=== PATIENT | male | born 1955 | race Caucasian/White ===

== ENCOUNTER 2025-05-05 13:42 | Outpatient (CLI) | payer MEDICARE, SELFPAY ==
--- OUTSIDE RECORDS SUMMARY | 2025-05-05 13:58 | XMS_ITS | CCD ---
Author Name Interface, [address] Address [address] Address [address] [place] [address] Care Team Providers Care Manager Sterile Name Role Phone Jad ZAVALA, Pau Gee Unavailable Unavailable Reason for Visit Social History
--- OUTSIDE RECORDS SUMMARY | 2025-05-05 13:58 | XMS_ITS ---
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 Lobular carcinoma of right breast 06/10/2022 Cancer Staging:Clinical stage from 06/10/2022:Stage IA(cT1c, cN0, cM0, G2, ER+, HI+, HER2: Equivocal) - Signed by Yary Denny MD on 06/10/2022 Pathologic stage from 07/31/2022:Stage IA(pT1c, pN0, cM0, G2, ER+, HI+, HER2-) - Signed by Yary Denny MD on 07/31/2022 Current Treatment and Therapy Plans Retail: Somatuline *[facility] Preferred* - Neuroendocrine* Plan Start Date:03/16/2024 Plan Provider:Rhianna Rutledge MD Linked Problems Neuroendocrine cancer Treatment Medications Current Day (Day 1 , Cycle 16 - Planned for 05/16/2025) Next Day (Day 1, Cycle 17 - Planned for 06/13/2025) No medications scheduled. No medications schedul ed. No medications scheduled. Retail: SUPPORT - Jub[employer] (DENOSUMAB)* Plan Start Date:04/18/2025 Plan Provider:Rhianna Rutledge MD Linked Problems Osteopenia, unspecified loca tionLobular carcinoma of right breast Treatment Medications Current Day (Day 1 , Cycle 2 - Planned for 10/17/2025) Next Day (Day 1, Cycle 3 - Planned for 04/17/2026) No medications scheduled. No medications schedul ed. No medications scheduled. Past Treatment and Therapy Plans ONCOLOGY SUPPORTIVE CARE Plan Name Start Date Discontinue Date Treatment Medications Discontinue Reason Plan Provider Cycles SUPPORT - ZOMETA - [facility] 07/18/2024 03/29/2025 No medications scheduled. Therapy Complete Rhianna Rutledge MD 4 of 6 cycles started [facility]: SUPPORT - PROLIA (DENOSUMAB) 05/14/2023 07/11/2024 No medications scheduled. Plan Clean Up Rhianna Rutledge MD 1 of 6 cycles started Current Radiation Episodes * IMRT: Right BreastOverview* First Treatment Date Latest Treatment Date Treatment Site Technique Goal Episode Provider 09/01/2022 09/19/2022 Right Breast IMRT Curative June barriga, Marc Biswas MD * Linked Problems Treatment Courses* Course C1 09/01/2022 - 09/19/2022 Treatment Period Fraction Dose Fractions Total Dose Plans Planned [id number] 09/01/2022 - 09/19/2022 267 cGy 4,005 cGy Reference Points Delivered [id number] 09/01/2022 - 09/19/2022 4,005 cGy
--- OUTSIDE RECORDS SUMMARY | 2025-05-05 13:58 | XMS_ITS | Clinical Summary ---
Author Organization [facility] Address [address] [place] [address] Care Team Providers Care Sales Strategy Manager Name Role Phone Rhianna Rutledge MD Unavailable Adan Hassan MD Primary Care Provider [phone] Allergies No known active allergies Medications albuterol 108 (90 Base) MCG/ACT Aerosol Solution take 2 Puffs by inhalation. Active fluticasone (FLONASE) 50 MCG/ACT Suspension 1-2 Sprays by Nasal route daily as needed. Use in each nostril as directed. Active anastrozole (ARIMIDEX) 1 MG TabletIndicati ons:Infiltrati ng lobular carcinoma of breast, stage 1, right TAKE 1 TABLET BY MOUTH EVERY DAY 90 Tablet 4 Active Somatuline Depot 120 MG/0.5ML Solution prefilled syringe 0.5 mL by Subcutaneous route every 28 days. 0.5 mL 11 5 Active Denosumab-bbdz (JUBBONTI) 60 MG/ML Solution Prefilled Syringe 1 mL by Subcutaneous route every 180 days. 1 mL 1 5 Active benzonatate (TESSALON) 200 MG Capsule TAKE 1 CAPSULE BY MOUTH THREE TIMES A DAY NEEDED FOR 5 DAYS 5 Active loratadine (CLARITIN) 10 MG Tablet take 1 tablet by mouth every day as needed 5 Active buPROPion (WELLBUTRIN) 150 MG XL tablet every morning. 2 025 Discontin ued(Med List Clean Up) Active Problems Problem Noted Date Diagnosed Date Elevated blood pressure reading 07/12/2024 Neuroendocrine cancer 03/09/2024 Encounter for screening mamm ogram for malignant neoplasm of breast 04/16/2023 Osteopenia 04/16/2023 Infiltrating lobular carcinoma of breast, stage 1, right 08/18/2022 Lobular carcinoma of right breast 06/10/2022 Cancer Staging:Clinical stage from 06/10/2022:Stage IA(cT1c, cN0, cM0, G2, ER+, WA+, HER2: Equivocal) - Signed by Yary Denny MD on 06/10/2022 Pathologic stage from 07/31/2022:Stage IA(pT1c, pN0, cM0, G2, ER+, WA+, HER2-) - Signed by Yary Denny MD on 07/31/2022 Encounters Date Type Department Care Team Description 04/18/2025 11:00 AM CDT Clinical Support [facility] [address] [id number] Nurse, [facility] [place] Osteopenia, unspecified location (Primary Dx); Lobular carcinoma of right breast; Neuroendocrine cancer 04/18/2025 10:45 AM CDT Office Visit [facility] [address] [phone] Rhianna Rutledge MD 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); Infiltrating lobular carcinoma of breast, stage 1, right; Elevated LFTs; Osteopenia, unspecified location 04/18/2025 10:30 AM CDT Lab [facility] [address] [address] Lab, [facility] [place] Neuroendocrine cancer 04/18/2025 Travel 04/06/2025 1:00 PM CDT Office Visit [facility] [address] [phone] Rhianna Rutledge MD 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); Elevated LFTs; Infiltrating lobular carcinoma of breast, stage 1, right 04/06/2025 12:45 PM CDT Lab [facility] [address] [address] Lab, [facility] [place] Neuroendocrine cancer; Diffuse idiopathic pulmonary neuroendocrine cell hyperplasia; Infiltrating lobular carcinoma of breast, stage 1, right; Osteopenia, unspecified location 04/06/2025 Travel 04/04/2025 8:00 AM CDT Care Management [facility] [address] [phone] Navigator, [facility] Nurse Care Management (EDUCATION PREP) 03/24/2025 Telephone [facility] [address] [phone] Rhianna Rutledge MD 03/14/2025 Telephone [facility] [address] [phone] Rhianna Rutledge MD 03/09/2025 1:45 PM CDT Office Visit [facility] [address] [phone] Rhianna Rutledge MD Neuroendocrine cancer (HCC) (Primary Dx); Diffuse idiopathic pulmonary neuroendocrine cell hyperplasia; Infiltrating lobular carcinoma of breast, stage 1, right; Osteopenia, unspecified location 03/09/2025 1:00 PM CDT Ancillary Procedure [facility] [address] [phone] Neuroendocrine cancer (HCC); Infiltrating lobular carcinoma of breast, stage 1, right; Dyspnea on exertion; Lung nodules 03/09/2025 12:45 PM CDT Lab [facility] [address] [phone] Lab, [facility] Neuroendocrine cancer (HCC) 03/09/2025 Travel 03/09/2025 Refill [facility] [address] [place] [address] Rhianna Rutledge MD 03/07/2025 Refill [facility] [address], [address] [place] [address] Rhianna Rutledge MD 03/02/2025 Refill [facility] [address], [address] [place] [address] Rhianna Rutledge MD 02/09/2025 11:45 AM CDT Office Visit [facility] [address] [phone] Carri Cox APRN, CNP Neuroendocrine cancer (HCC) (Primary Dx); Infiltrating lobular carcinoma of breast, stage 1, right; Dyspnea on exertion; Lung nodules; Diffuse idiopathic pulmonary neuroendocrine cell hyperplasia; Osteopenia, unspecified location; Lobular carcinoma of right breast 02/09/2025 11:30 AM CDT Lab [facility] [address] [phone] [facility] Infiltrating lobular carcinoma of breast, stage 1, right; Diffuse idiopathic pulmonary neuroendocrine cell hyperplasia; Osteopenia, unspecified location; Neuroendocrine cancer (HCC) 02/09/2025 Travel from Last 3 Months Family History Medical History Relation Name Comments Lung Cancer Brother Lung Cancer Maternal Aunt Ovarian Cancer Paternal Grandmother Breast Cancer Sister Leukemia/Lymphoma Sister Relation Name Status Comments Brother Maternal Aunt Alive Paternal Grandmother Sister Social History Tobacco Use Types Packs/Day Years Used Date Smoking Tobacco: Former Cigarettes 1 1 Smokeless Tobacco: Never Tobacco Cessation:Counseling Given: Not Answered Comments:Smoked heavily for 1 year, otherwise only socially. Quit for 11 years then smoked 05/2021-04/2022 Alcohol Use Standard Drinks/Week Comments Yes 0 (1 standard drink = 0.6 oz pur e alcohol) rarely Comments No Sex and Gender Information Value Date Recorded Sex Assigned at Not on file Legal Sex Female 8:35 AM CDT Gender Identity Not on file Sexual Orientation Not on file Occupation Industry Job Start Date Job End Date retired [employer] Not on file Not on file Not on file Last Filed Vital Signs Vital Sign Reading Time Taken Comments Blood Pressure 130/88 04/18/2025 10:28 AM CDT Pulse 74 04/18/2025 10:28 AM CDT Temperature 36.4 C (97.6 F) 04/18/2025 10:28 AM CDT Respiratory Rate 18 04/18/2025 10:2 8 AM CDT Oxygen Saturation 97% 04/18/2025 10: 28 AM CDT Inhaled Oxygen Concentration - - Weight 91.5 kg (201 lb 12.8 oz) 025 10:28 AM CDT Height 163.8 cm (5' 4.5) 04/18/2025 10 :28 AM CDT Body Mass Index 34.1 04/18/2025 10:28 AM CDT Plan of Treatment Upcoming Encounters Date Type Department Care Team (Late st Contact Info) Description 05/16/2025 10:35 AM [facility] Lab [facility] [address] [phone] Lab, [facility] 05/16/2025 10:45 AM [facility]OL [facility]ER Office Visit [facility] [address] [phone] Rhianna Rutledge MD [address] [place] [phone] 05/16/2025 11:00 AM WOOL [facility]ANKER Clinical Support [facility] [address] [phone] Health Maintenance Due Date Last Done Comments Hepatitis C Virus (HCV) Screening 1955 Immunochemical Fecal Occult Blood 1999 Medicare Initial AWV [id number] 01/03/2022 Cologuard 10/15/2022 10/16/2019 Zoster Immunization (2 of 2) 10/15/2022 08/20/2022 Influenza Immunization (#1) 03/06/202504/05, 04/21/2023, 06/20/2022, Additional history exists SARS-COV-2 Immunization ( season) 2025 04/22/2024, 04/21/2023, 06/20/2022, Additional history exists Mammogram 08/19/2025 08/19/2024, 05/06, 05/20/2023, Additional history exists DEXA Bone Density 08/31/2026 08/31/2024, 09/02/2022 Colonoscopy 12/23/2033 12/24/2023, 12/24/2023 Colorectal Cancer Screening 12/23/2033 DTaP/Tdap/Td Immunization Discontinued 09/21/2019, 08/1999 TdaP Immunization Completed 09/21/2019 Pneumococcal Immunization (50+ years) Completed 04/19/2021, 09/21/2019 Respiratory Syncytial Virus (RSV) Immunization (Adult) Completed 04/22/2024 Mammogram Unilateral Discontinued 08/19/2024, 05/20/2023, 05/20/2023, Additional history exists Hepatitis B Immunization Aged Out No longer eligible based on patient's age to complete this topic Human Papillomavirus (HPV) Immunization Aged Out No longer eligible based on patient's age to complete this topic Meningococcal Immunization (ACWY) Aged Out No longer eligible based on patient's age to complete this topic Rotavirus Immunization Aged Out No lo nger eligible based on patient's age to complete this topic Goals Goal Patient Goal Type Associated Problems Recent Progress Patient-Stated? Author Patient will have better understanding of her cancer diagnosis Care Coordination On track(08/11 8:56 AM WOOL HANKER) Yaz Gray, RN Note: Goal Reviewed with: patient Readiness to change: Ready to change Department associated with goal: [facility] Steps to achieve goal: Patient will learn the pathophysiology of her cancer diagnosis, including the implications of hormone receptors Patient will learn about typical treatment options for breast cancer 3. Patient will learn the different members of her care team [employer] Targets Zoe Zamorano, RN Note: Have an understanding of radiation therapy. Patient does not have any personal goals. 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, stage 1, right Osteopenia, unspecified location CT CHEST W CONTRAST Routine 03/09/2025 1 2:56 PM CDT Neuroendocrine cancer (HCC) Infiltrating lobular carcinoma of breast, stage 1, right Dyspnea on exertion Lung nodules CBC WITH AUTO DIFF OH Routine 03/09/2025 12:29 PM CDT CMP (COMPREHENSIVE METABOLIC PANEL) Routine 03/09/2025 12:29 PM CDT Neuroendocrine cancer (HCC) CBC WITH AUTO DIFF OH Routine 02/09/2025 11:31 AM CDT CMP (COMPREHENSIVE METABOLIC PANEL) Routine 02/09/2025 11:31 AM CDT Infiltrating lobular carcinoma of breast, stage 1, 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 Osteopenia, unspecified location Neuroendocrine cancer (HCC) [facility] BONE DENSITOMETRY AXIAL SKELETON Routine 08/31/2024 1:44 PM WOOL [facility]ER Neuroendocrine cancer (HCC) Encounter for screening mammogram for malignant neoplasm of breast EDWIN DIAG BILATERAL DIGITAL W CAD W LITTLE Routine 05/20/2023 Invasive lobular carcinoma of breast in female (HCC) Lobular carcinoma of right breast (HCC) Personal history of breast cancer from Last 3 Months or Most Recently Relevant to Health Maintenance Results * (ABNORMAL) CBC WITH AUTO DIFF OH (04/18/2025 10:13 AM CDT) Only the most recent of4 resultswithin the time period is included. WBC 7.4 4.0 - 10.0 10*3/uL [facility] HGB 14.9 11.2 - 15.7 g/dL [facility] [employer] HCT 45.8(H) 34.1 - 44.9 % [facility] PLT 303 163 - 369 10*3/uL [facility] MPV 9.4 9.4 - 12.4 fL [facility] RBC 4.84 3.93 - 5.22 10*6/uL [facility] MCV 95 79 - 95 fL [facility] TRA[facility] MCH 30.8 25.6 - 32.2 pg [facility] MCHC 32.5 32.2 - 36.5 g/dL [facility] RDW 12.7 11.6 - 14.4 % [facility] Neutrophils % 53.1 36.0 - 66.0 % [facility] Lymphocytes % 32.7 19.0 - 40.0 % [facility] Monocytes % 10.3 4.1 - 12.1 % [facility]LL[facility] TRA[facility] Eosinophils % 2.7 0.0 - 3.5 % [facility] Basophils % 1.1(H) 0.0 - 1.0 % [facility] Absolute Neutrophils 3.9 1.4 - 6.6 10*3/uL [facility] Absolute Lymphocytes 2.4 0.8 - 4.0 10*3/uL [facility] Absolute Monocytes 0.8 0.2 - 1.2 10*3/uL [facility] Absolute Eosinophils 0.2 0.0 - 0.4 10*3/uL [facility] Absolute Basophils 0.1 0.0 - 0.1 10*3/uL [facility] 04/18/2025 10:1 3 AM CDT Rhianna Rutledge MD LAB SEND OUTS Final Result [facility] [place] [address], * (ABNORMAL) CMP (COMPREHENSIVE METABOLIC PANEL) (04/18/2025 10:13 AM CDT) Only the most recent of4 resultswithin the time period is included. Glucose 139(H) 70 - 105 mg/dL [facility] Blood Urea Nitrogen 13 7 - 25 mg/dL [facility] Creatinine 0.6 0.6 - 1.2 mg/dL [facility] Sodium 140 136 - 145 mEq/L [facility] Potassium 4.4 3.5 - 5.1 mEq/L [facility] Chloride 104 98 - 107 mEq/L [facility] Bicarbonate 29 21 - 31 mEq/L [facility] Total Bilirubin 0.4 0.3 - 1.0 mg/dL [facility] Alk. Phosphatase 71 34 - 104 U/L [facility] Aspartate Aminotransferase 85(H) 13 - 39 U/L [facility] Alanine Aminotransferase 176(H) 7 - 52 U/L [facility] Total Protein 7.4 6.4 - 8.9 g/dL [facility] Albumin 4.2 3.5 - 5.7 g/dL [facility] Calcium 9.2 8.6 - 10.3 mg/dL [facility] Anion Gap 11.4 7.0 - 15.0 mEq/L [facility] Globulin 3.2 2.0 - 3.5 g/dL [facility] EGFR 96 >60 ml/min/1. 73m2 [facility] Comment: This eGFR is calculated using 2020 CKD-EPI Creatinine equation without race modifier based on the NKF-ASN task force recommendations Equation: cJJV=361*min(SCr/k,1)a*max(SCr/k,1)-1.200*0.9938Age*1.012 (if female), where SCr is serum creatinine, k is 0.7 for females and 0.9 for males, and a is -0.241 for females and -0.302 for males Blood 04/18/2025 10:1 3 AM CDT Narrative [facility] - 04/18/2025 10:54 AM CDT Release to patient->Immediate IS THE PATIENT REQUIRED TO BE FASTING FOR 8 HOURS?->No us Rhianna Rutledge MD CHEMISTRY ORDERABLES Final Resul t [facility] [employer] [place] [address], * CT CHEST W CONTRAST (03/09/2025 12:56 PM CDT) Anatomical Region Laterality Modality Chest N/A Computed Tomogra phy Narrative 03/09/2025 1:26 PM CDT EXAMINATION: CT CHEST W CONTRAST 03/09/2025 INDICATIONS: Other malignant neuroendocrine tumors neuroendocrine malignancy. Pulmonary nodules. COMPARISON: CT chest 02/02/[address]-PET of 2024 TECHNIQUE: Following the administration of intravenous contrast, helical imaging was performed through the chest. A dose lowering technique was used for this procedure, which may include, but is not limited to, dose reduction technique(s), automated exposure control techniques, use of iterative reconstruction techniques, and ALARA (as low as reasonably achievable) or ALARA/IMAGE Gently techniques. FINDINGS: Cardiovascular: Atherosclerotic disease is seen within the thoracic aorta without aneurysmal dilatation. Moderate coronary artery calcification is seen. The heart size is within normal limits. The pulmonary arterial tree demonstrates no definite filling defect to suggest acute pulmonary embolism. Pleura: No significant pleural or pericardial effusion is seen. Lymphatics: Calcified lymph nodes are present consistent with previous granulomatous disease. No other significant adenopathy is appreciated. Postop changes are seen within the right axilla. Lungs: Multiple small pulmonary nodules are redemonstrated bilaterally and are probably not significantly changed. The largest of these is seen within the lingula. Additional atelectasis and interstitial abnormalities are present. There is mild mosaic pattern present. Upper abdomen: Hepatic steatosis is present. Fatty sparing is seen adjacent to the gallbladder. Musculoskeletal: Degenerative changes are seen within the spine. There is postprocedural changes of the right breast with fluid collection redemonstrated similar to previous. IMPRESSION 1. Postop changes of the right breast with persistent fluid collection probably not significantly changed presumed postprocedural. Recommend correlation with previous workup and follow up. 2. Postop changes right axilla stable in their appearance. No recurrent adenopathy. 3. Multiple small pulmonary nodules redemonstrated and not significantly changed. These remain indeterminate in their etiology. Metastatic disease remains a possibility. Continued follow-up recommended. 4. Additional atelectatic changes and chronic parenchymal changes are seen. Mild mosaic pattern is present. 5. Hepatic steatosis. Electronically signed by: KP WEAVER MD, Staff Radiologist Date of Signature: 03/09/2025 13:26:01 Procedure Note Kp Weaver MD - 03/09/2025 EXAMINATION: CT CHEST W CONTRAST 03/09/2025 INDICATIONS: Other malignant neuroendocrine tumors neuroendocrine malignancy.Pulmonary nodules. COMPARISON: CT chest 02/02/[address]-PET of 2024 TECHNIQUE: Following the administration of intravenous contrast, helical imaging wasperformed through the chest. A dose lowering technique was used for this procedure, which may include,but is not limited to, dose reduction technique(s), automated exposurecontrol techniques, use of iterative reconstruction techniques, and ALARA(as low as reasonably achievable) or ALARA/IMAGE Gently techniques. FINDINGS: Cardiovascular: Atherosclerotic disease is seen within the thoracic aortawithout aneurysmal dilatation. Moderate coronary artery calcification isseen. The heart size is within normal limits. The pulmonary arterialtree demonstrates no definite filling defect to suggest acute pulmonaryembolism. Pleura: No significant pleural or pericardial effusion is seen. Lymphatics: Calcified lymph nodes are present consistent with previousgranulomatous disease. No other significant adenopathy is appreciated.Postop changes are seen within the right axilla. Lungs: Multiple small pulmonary nodules are redemonstrated bilaterally andare probably not significantly changed. The largest of these is seenwithin the lingula. Additional atelectasis and interstitial abnormalitiesare present. There is mild mosaic pattern present. Upper abdomen: Hepatic steatosis is present. Fatty sparing is seenadjacent to the gallbladder. Musculoskeletal: Degenerative changes are seen within the spine. There ispostprocedural changes of the right breast with fluid collectionredemonstrated similar to previous. IMPRESSION 1. Postop changes of the right breast with persistent fluid collectionprobably not significantly changed presumed postprocedural. Recommendcorrelation with previous workup and follow up. 2. Postop changes right axilla stable in their appearance. No recurrentadenopathy. 3. Multiple small pulmonary nodules redemonstrated and not significantlychanged. These remain indeterminate in their etiology. Metastaticdisease remains a possibility. Continued follow-up recommended. 4. Additional atelectatic changes and chronic parenchymal changes areseen. Mild mosaic pattern is present. 5. Hepatic steatosis. Electronically signed by: KP WEAVER MD, Staff Radiologist Date of Signature: 03/09/2025 13:26:01 us Carri Phamattreinaldo PIERCING SPECIALIST, BEACH EXPERT IMG CT ORDERABLES F inal Result * [facility] BONE DENSITOMETRY AXIAL SKELETON (08/31/2024 1:44 PM WOOL HANKER) Anatomical Region Laterality Modality BODY N/A Other Narrative 08/31/2024 3:09 PM WOOL HANKER EXAMINATION: [facility] BONE DENSITOMETRY AXIAL SKELETON INDICATIONS: Other malignant neuroendocrine tumors. Osteoporosis, 1 inch height loss, hysterectomy, postmenopausal, anastrozole use, calcium supplement use, bone loss drug use COMPARISON: Note is made that an outside report from [facility] dated September 02, 2022 has been forwarded to our department. FINDINGS: Normal appearing bone density of the L1-L4 of the lumbar spine measuring 1.088 corresponding to 91 percent of that expected in a young adult with A T-score of -0.9 and a Z-score of 0.1. This appears to have worsened from report of outside examination dated September 02, 2022. Low bone mass (osteopenia) of the left femoral neck measuring 0.710 corresponding to 68 percent of that expected in a young adult with a T-score of -2.4 and a Z- score of -1.1. Low bone mass (osteopenia) of the total left femoral bone mineral density value measuring 0.783 corresponding to 78 percent of that expected in a young adult with a T-score of -1.8 and a Z-score of -0.8. Low bone mass (osteopenia) of the right femoral neck measuring 0.708 corresponding to 68 percent of that expected in a young adult with a T-score of -2.4 and a Z- score of -1.1. Low bone mass (osteopenia) of the total right femoral bone mineral density value measuring 0.807 corresponding to 80 percent of that expected in a young adult with a T-score of -1.6 and a Z-score of -0.6. Low bone mass (osteopenia) of the total mean femoral bone mineral density value measuring 0.795 corresponding to 79 percent of that expected in a young adult with a T-score of -1.7 and a Z-score of -0.7. IMPRESSION Low bone mass (osteopenia). The bone mineral density of the left femoral has worsened when compared to report of outside examination dated September 02, 2022. The bone mineral density of the right femoral neck has worsened when compared to report of outside examination dated September 02, 2022. Electronically signed by: ALEXANDRIA MAGANA MD Date of Signature: 08/31/2024 15:09:44 Procedure Note Alexandria Magana MD - 08/31/2024 EXAMINATION: [facility] BONE DENSITOMETRY AXIAL SKELETON INDICATIONS: Other malignant neuroendocrine tumors. Osteoporosis, 1 inch height loss,hysterectomy, postmenopausal, anastrozole use, calcium supplement use,bone loss drug use COMPARISON: Note is made that an outside report from [facility] dated 2022 has been forwarded to our department. FINDINGS: Normal appearing bone density of the L1-L4 of the lumbar spine measuring1.088 corresponding to 91 percent of that expected in a young adult with AT-score of - 0.9 and a Z-score of 0.1. This appears to have worsened fromreport of outside examination dated September 02, 2022. Low bone mass (osteopenia) of the left femoral neck measuring 0.710corresponding to 68 percent of that expected in a young adult with aT-score of -2.4 and a Z-score of -1.1. Low bone mass (osteopenia) of the total left femoral bone mineral densityvalue measuring 0.783 corresponding to 78 percent of that expected in ayoung adult with a T-score of -1.8 and a Z-score of -0.8. Low bone mass (osteopenia) of the right femoral neck measuring 0.708corresponding to 68 percent of that expected in a young adult with aT-score of -2.4 and a Z-score of -1.1. Low bone mass (osteopenia) of the total right femoral bone mineral densityvalue measuring 0.807 corresponding to 80 percent of that expected in ayoung adult with a T-score of -1.6 and a Z-score of -0.6. Low bone mass (osteopenia) of the total mean femoral bone mineral densityvalue measuring 0.795 corresponding to 79 percent of that expected in ayoung adult with a T-score of -1.7 and a Z-score of -0.7. IMPRESSION Low bone mass (osteopenia). The bone mineral density of the left femoral has worsened when compared toreport of outside examination dated September 02, 2022. The bone mineral density of the right femoral neck has worsened whencompared to report of outside examination dated September 02, 2022. Electronically signed by: ALEXANDRIA MAGANA MD Date of Signature: 08/31/2024 15:09:44 Rhianna Rutledge MD IMG DEXA ORDERABLES Final Result * EDWIN DIAG BILATERAL DIGITAL W CAD W LITTLE (05/20/2023) Anatomical Region Laterality Modality breast Bilateral Mammography Rhianna WEBERG MAMMO ORDERABLES Final Resul t from Last 3 Months or Most Recently Relevant to Health Maintenance Insurance MEDICARE C [facility] MEDICARE C [facility] Care Teams Sales Strategy Manager Relationship Specialty Start Date End Date Adan Hassan MD [address] [place] [id number] PCP - General Internal Medicine 05/20/24 Rhianna Rutledge MD [address] [place] [phone] Consulting Physician Oncology 11/23/23
--- OUTSIDE RECORDS SUMMARY | 2025-05-05 13:58 | XMS_ITS | CCD ---
Author Name Interface, [address] [id number] Care Team Providers Care Network Systems Consultant Name Role Phone Jad ZAVALA, Pau Gee Unavailable Unavailable Reason for Visit Social History Date Name Value 10/15/2024 Sex Female
--- OUTSIDE RECORDS SUMMARY | 2025-05-05 13:58 | XMS_ITS | Clinical Summary ---
Author Organization [facility] Address [address] [place] [phone] Care Team Providers Care Outboard Motor Assembler Name Role Phone Adan Hassan MD Primary Care Provider [phone] Surgical History Surgery Date Site/Laterality Comments BREAST LUMPECTOMY 07/18/2022 Right Medical History Medical History Date Comments Breast cancer (HCC) 07/18/2022 right breast cancer History of radiation therapy rig ht breast cancer - Aug thru September 2022 - treatments Family History Medical History Relation Name Comments Breast cancer Sister Relation Name Status Comments Sister Social History Tobacco Use Types Packs/Day Years Used Date Smoking Tobacco: Never Assessed Comments No Sex and Gender Information Value Date Recorded Sex Assigned at Not on file Legal Sex Female 11:34 AM CHECK CLERK Gender Identity Not on file Sexual Orientation Not on file Obstetrics History Para Term AB IAB SAB Ectopic Multiple Livin g Live Births 1 1 1 Date Outcome GA Total Labor Labor/2nd/3rd Weight Sex Type Anes PTL Jaelyn A1 A5 Name Clin Term Last Filed Vital Signs Vital Sign Reading Time Taken Comments Blood Pressure 151/70 04/16/2020 5:50 AM CDT Pulse 58 04/16/2020 5:50 AM CDT Temperature 35.9 C (96.6 F) 04/16/2020 5:50 AM CDT Respiratory Rate - - Oxygen Saturation 98% 04/16/2020 5:50 AM CDT Inhaled Oxygen Concentration - - Weight 74.8 kg (164 lb 14.5 oz) 04/16/2020 5:50 AM CDT Height 165.1 cm (5' 5) 04/16/2020 5:50 AM CDT Body Mass Index 27.44 04/16/2020 5:50 AM CDT Plan of Treatment Health Maintenance Due Date Last Done Comments Colon Cancer Screening-Colonoscopy 1954 Depression Screening 1954 Fall Risk Assessment 1955 Hepatitis C Screening 1955 Hepatitis B Screening 1972 Well Visit 65+ 2019 Zoster Vaccine (2 of 2) 10/15/2022 08/20/2022 Osteoporosis Screening-Bone Density Scan 09/02/2024 09/02/2022, 09/02/2022 Covid-19 Vaccine (5 - 2024-2 6 season) 2025 04/21/2023, 06/20/2022, 11/28/2020, Additional history exists Influenza Vaccine (#1) 2025 , 06/20/2022, 04/19/2021, Additional history exists Breast Cancer Screening-Mammogram 08/19/2025 08/19/2024, 05/20/2023, 05/20/2023, Additional history exists DTaP/Tdap/Td Vaccine (2 - Td or Tdap) 09/20/2029 09/21/2019, 11/05/1999 Pneumococcal vaccine 65+ Completed 04/19/2021, 09/03 Procedures Procedure Name Priority Date/Time Associated Diagnosis Comments DIAGNOSTIC MAMMOGRAM BILATERAL W JAKE Schedule Routine, Read Routine (OP Routine) 08/19/2024 8:40 AM CHECK CLERK Personal history of breast cancer from Last 3 Months or Most Recently Relevant to Health Maintenance Results * Diagnostic Mammogram Bilateral W Jake (08/19/2024 8:40 AM CHECK CLERK) Anatomical Region Laterality Modality Breast Bilateral Mammography 08/19/2024 8:56 AM CHECK CLERK Narrative 08/19/2024 9:04 AM CHECK CLERK EXAM DESCRIPTION: DIAGNOSTIC MAMMOGRAM BILATERAL W JAKE REASON FOR STUDY: 69-year-old female with reported history of invasive lobular carcinoma status post breast conservation therapy at an outside facility in July 2022. She presents today for routine annual post-treatment follow-up. TECHNIQUE: CC and MLO views of the bilateral breasts were obtained with digital technique using breast tomosynthesis with C view. COMPARISON: 05/20/2023, 01/28/2023, 07/18/2022, 06/10/2022, 05/28/2022, 05/16/2022, 11/08/2021, 05/21/2021, 03/14/2021 FINDINGS: DENSITY: There are scattered areas of fibroglandular density. MAMMOGRAM FINDINGS: Changes of right breast conservation therapy are again noted. There is a large mass measuring at least 7.9 cm in the posterior central right breast. This mass contains areas of internal fat density, consistent with postoperative seroma. Size and appearance of this seroma are largely similar to prior mammogram from May 2023. There also are stable postoperative changes in the right axilla, consistent with prior sentinel lymph node biopsy/excision (axillary lymph nodes were negative per the patient). Benign secretory calcifications and other typically benign calcifications in both breasts have not suspiciously changed. No definite new suspicious finding is seen within either breast on mammogram. IMPRESSION: 1. Stable mammographic findings consistent with right breast conservation therapy as detailed above. 2. No new suspicious mammographic finding within either breast. Continued clinical follow-up, monthly breast self-examination, and screening mammography in 1 year are recommended. BIRADS: 2 Benign findings. The patient was notified of these findings and recommendations at the time of the examination. THIS IS AN ELECTRONICALLY VERIFIED FINAL REPORT 08/19/2024 9:04 AM - Electronically signed by Vimal Mathew M.D., MD: Report ID: [id number] Reading Location: [facility] Rhianna Rutledge MD IMG MAMMO PROCEDURES Final Resul t from Last 3 Months or Most Recently Relevant to Health Maintenance Insurance [employer] MEDICARE GOLD [facility] Care Teams Outboard Motor Assembler Relationship Specialty Start Date End Date Adan Hassan MD [address] [place] [address] [place] [address] PCP - General Internal Medicine 05/24/24
--- OUTSIDE RECORDS SUMMARY | 2025-05-05 13:58 | XMS_ITS ---
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 Abnormal finding on lung imaging 02/15/2024 Multiple lung nodules 02/15/2024 Malignant neoplasm of upper- outer quadrant of right breast in female, estrogen receptor positive 02/15/[address] disease without complication 02/15/2024 Environmental and seasonal allergies 02/15/2024 Class 1 obesity with body ma ss index (BMI) of 32.0 to 32.9 in adult, unspecified obesity type, unspecified whether serious comorbidity present 02/15/2024 Cigarette nicotine dependence in remission 02/14 Constipation, unspecified constipation type 12/04 Current Treatment and Therapy Plans No current plan information found. Past Treatment and Therapy Plans Oncology Supportive Care 1 Plan Name Start Date Discontinue Date Treatment Medications Discontinue Reason Plan Provider Cycles lanreotide Q28D 04/30/20 24 03/29/2025 No medications scheduled. Unlisted Reason (Comment) Rhianna Rutledge MD 12 of 13 cycles started Oncology Supportive Care 2 Plan Name Start Date Discontinue Date Treatment Medications Discontinue Reason Plan Provider Cycles zoledronic acid (RECLAST) every 12 months 03/29/2025 No medications scheduled. Unlisted Reason (Comment) Rhianna Rutledge MD 4 of 5 cycles started Resolved Problems Problem Noted Date Diagnosed Date Resolved Date Screening for colon cancer 12/18/2023 0 12/21/2023 Screening for colon cancer 12/18/2023 0 12/28/2023
--- OUTSIDE RECORDS SUMMARY | 2025-05-05 13:58 | XMS_ITS | Clinical Summary ---
Author Organization [facility] Address [address] [place] [address] Care Team Providers Care Structures Mechanic Name Role Phone Adan Hassan MD Primary Care Provider Allergies No known active allergies Medications traZODone (DESYREL) 50 MG tablet Take 1 tablet (50 mg total) by mouth nightly at bedtime. Active FLUoxetine (PROZAC) 10 MG tablet Take 1 tablet (10 mg total) by mouth daily. Active fluticasone propionate (FLONASE) 50 MCG/ACT nasal spray 1-2 sprays by Nasal route daily. Active sertraline (ZOLOFT) 100 MG tablet Take 1 tablet (100 mg total) by mouth daily. Active anastrozole (ARIMIDEX) 1 MG tablet Take 1 tablet by mouth daily. Active albuterol sulfate HFA 108 (90 Base) MCG/ACT inhaler Inhale 2 puffs into the lungs every 4 (four) hours as needed for Shortness of breath or Wheezing. Active meloxicam (MOBIC) 15 MG tablet Take 1 tablet (15 mg total) by mouth daily. Instructed by Thuan in Nataliia's office to hold 1 week Active dextromethorpha n-guaiFENesin ER (MUCINEX DM) 30-600 MG TABLET SR 12 HR 12 hr tablet Take 1 tablet by mouth daily. Active loratadine (CLARITIN) 10 MG tablet Take 1 tablet (10 mg total) by mouth daily. Active Active Problems Problem Noted Date Diagnosed Date [...] remission 02/14 Constipation, unspecified constipation type 12/04 Resolved Problems Problem Noted Date Diagnosed Date Resolved Date Screening for colon cancer 12/18/2023 0 12/21/2023 Screening for colon cancer 12/18/2023 0 12/28/2023 Encounters Date Type Department Care Team Description 04/27/2025 Telephone [facility] Multispecialty Care - [address] [place] [address] Dandre William MD Appointment Request 03/29/2025 Orders Only [facility], [address] [address] Non-Staff, Provider 03/20/2025 11:00 AM CDT Treatment [facility], [address] [address] Non-Staff, Provider Chemotherapy 03/20/2025 Travel 02/21/2025 11:00 AM CDT Treatment [facility], [address] [address] Non-Staff, Provider Chemotherapy 02/21/2025 Travel from Last 3 Months Immunizations Immunization Administration Dates Next Due Influenza (Generic) 07/03/2009 Influenza Adult (Generic) 05/07/2020,04/26/2019 PFIZER COVID-19 BIVALENT (12 +) mRNA, LNP-S, PF, 30 MCG/0.3 ML DOSE 06/20/2022 Pneumococcal (Pneumovax 23) 04/19/2021 Pneumococcal (Prevnar 13) 09/21/2019 Shingrix 08/20/2022 Td (TDVAX) 11/05/1999 Tdap (Generic) 09/21/2019 Family History Medical History Relation Comments Cancer Brother Cancer Sister Relation Status Comments Brother Sister Social History Tobacco Use Types Packs/Day Years Used Date Smoking Tobacco: Former Cigarettes Q uit: 2021 Smokeless Tobacco: Never Tobacco Cessation:Counseling Given: Yes Alcohol Use Standard Drinks/Week Comments Not Currently 0 (1 standard drink = 0.6 oz pur e alcohol) PHQ-2 Answer Date Recorded Patient Health Questionnaire-2 Score 1 10/03/2024 Comments No Sex and Gender Information Value Date Recorded Sex Assigned at Female 10/03/2024 12:36 PM CDT Legal Sex Female 4:21 PM CDT Gender Identity Not on file Sexual Orientation Not on file Last Filed Vital Signs Vital Sign Reading Time Taken Comments Blood Pressure 135/78 03/20/2025 11:47 AM CDT Pulse 79 03/20/2025 11:47 AM CDT Temperature 37 C (98.6 F) 03/20/2025 11:47 AM CDT Respiratory Rate 20 03/20/2025 11:47 AM CDT Oxygen Saturation 96% 03/20/2025 11:47 AM CDT Inhaled Oxygen Concentration - - Weight 87.5 kg (193 lb) 10/31/2024 1:16 PM CDT Height 163.8 cm (5' 4.5) 10/31/2024 1:16 PM CDT Body Mass Index 32.62 10/31/2024 1:16 PM CDT Plan of Treatment Upcoming Encounters Date Type Department Care Team (Late st Contact Info) Description 05/11/2025 9:45 AM FLUTE POLISHER Appointment [facility] [address] [place], [place] [phone] Rhianna Rutledge MD [address] [place], [place] [phone] 09/25/2025 9:00 AM CDT Office Visit [facility] Multispecialty Care - [facility] [address] [facility] [address] [place] [address] Dandre Wliliam MD [address] [place], [place] [address] [address] [place] [id number] Health Maintenance Due Date Last Done Comments Hepatitis C 1973 RSV Immunization or 60+ Years (1 - Risk 60-74 years 1-dose series) 2014 Annual Medicare Wellness Visit 2019 Zoster Vaccines (2 of 2) 10/15/2022 08/20/2022 COVID-19 Vaccine ( - season) 2025 06/20/2022, 11/28/2020, 10/22/2020 Influenza Adult (#1) 2025 05/07/2020, 04/26/2019, 07/03/2009 Mammogram Screening 08/19/2026 08/19/2024, 05/20/2023, 05/20/2023, Additional history exists DTaP, Tdap and Td Vaccines (2 - Td or Tdap) 09/20/2029 09/21/2019, 11/05/1999 Colorectal Cancer Screening Colonoscopy (10 Years) 12/23/2033 12/24/2023, 12/24/2023 Pneumococcal Vaccine: 50+ Years Completed 04/19/2021, 09/21/2019 Dexa Scan (General) Completed 08/31/2024, 08/31/2024, 09/02/2022 PHQ-2 (Physician [place]) Completed 10/03/2024 Hepatitis A Vaccines Aged Out No long er eligible based on patient's age to complete this topic Meningococcal B Vaccine Aged Out No l onger eligible based on patient's age to complete this topic Meningococcal Vaccine Aged Out No karen radha eligible based on patient's age to complete this topic RSV Immunizations Under 20 Months Aged Out No longer eligible based on patient's age to complete this topic Procedures Procedure Name Priority Date/Time Associated Diagnosis Comments COLONOSCOPY Routine 12/24/2023 8:10 AM CDT from Last 3 Months or Most Recently Relevant to Health Maintenance Insurance [facility] MEDICARE Care Teams Structures Mechanic Relationship Specialty Start Date End Date Adan Hassan MD [address] [phone] PCP - General INTERNAL MEDICINE 02/18/24
[2025-05-05 14:48] LABS: INR 1.1; Prothrombin Time 14.0 Seconds (11.1-14.7)
[2025-05-05 14:56] LABS: Iron 86 ug/dL (49-181)
[2025-05-05 15:06] LABS: Percent Iron Saturation 34 % (20-50)
[2025-05-05 15:28] LABS: Hepatitis B Surface Antigen Negative (Negative)
[2025-05-05 15:33] LABS: HAV RESULT Negative (Negative); Hepatitis B Core IgM Result Negative (Negative)
[2025-05-05 15:41] LABS: Ferritin 433.00 ng/mL (11.1-264)
[2025-05-06 07:08] LABS: GGT 132 IU/L (0-65)
[2025-05-08 16:08] LABS: ANA by IFA Rfx Titer/Pattern Positive (.)
== END 2025-05-05 13:43 | disposition home or self-care (01) ==
LOC: ANHLAB 13:56
PROVIDERS: PCP Internal Medicine; Visit Provider Nurse Practitioner Family
DX: K76.0 Fatty (change of) liver, not elsewhere classified (principal); R79.89 Other specified abnormal findings of blood chemistry; R10.12 Left upper quadrant pain
CPT/HCPCS: 36415; 80074; 82103; 82390; 82728; 82977; 83540; 83550; 85610; 86015; 86038; 86381